=== PATIENT | male | born 1995 | race Caucasian/White ===

== ENCOUNTER 2024-01-24 19:44 | Emergency (ER) | payer BC, SELFPAY ==
[2024-01-24 19:45] VITALS: BP 170/91; PULSE 116; RESP 18; TEMP 36.6; O2SAT 99; BMI 23.0
--- NOTE | 2024-01-24 20:15 | RAD_ITS ---
STUDY: X-RAY - LEFT WRIST REASON FOR EXAM: Male, 28 years old. trauma TECHNIQUE: 3 view(s) of the wrist were obtained. COMPARISON: None. FINDINGS: Acute nondisplaced non a transverse fracture of the distal metaphysis of the radius with associated ulnar styloid fracture. Normal radiocarpal articulation. Normal distal radioulnar articulation. Normal carpal bones. Normal carpal articulations. Normal carpometacarpal articulation of the thumb. Normal second through fifth carpometacarpal articulations. Normal visualized metacarpal bones. The soft tissue structures are unremarkable. RAD/Wrist min 3 Views IMPRESSION: Acute nondisplaced nonangulated transverse fracture of the distal radius with ulnar styloid fracture. Electronically Signed: Andrés Romero MD at 21:03 EDT ,
--- NOTE | 2024-01-24 20:16 | EX.ED.UPPERE ---
HPI History of Present Illness Chief Complaint: Upper Extremity Injury Informant: patient Narrative Narrative: 28-year-old male states that he fell backwards try to catch himself causing injury to left wrist. He notes swelling and limited range of motion due to pain. He denies any other injuries. He is right-handed. [facility] Allergy/AdvReac Type Severity Reaction Status Date / Time No Known Allergies Allergy Verified 01/24/24 19:46 Social History Smoking Status: Never smoker alcohol intake: never ROS ROS ED Constitutional Constitutional ED: Denies chills or weight loss Eyes Eyes: Denies change in vision or diplopia ENT ENT ED: Denies ear pain, rhinorrhea or sore throat Cardiovascular Cardiovascular: Denies chest pain, orthopnea, palpitations or racing heartbeat Respiratory/Chest Respiratory/Chest: Denies cough, dyspnea or orthopnea Gastrointestinal Gastrointestinal: Denies abdominal pain, diarrhea, nausea or vomiting Genitourinary Genitourinary ED: Denies dysuria, hematuria or urinary frequency Musculoskeletal Musculoskeletal: Reports other Details: See history of present illness ; Denies arthralgias or myalgias Integumentary Denies abscess or rash Neurologic Neurologic: Denies headache(s) or weakness Psychiatric Psychiatric: Denies anxiety, depression, suicidal ideation or suicidal thoughts Endocrine Endocrinology: Denies polydipsia, polyphagia or polyuria Allergic/Immunologic Allergic/Immunologic ED: Denies mouth swelling, tongue swelling or urticaria EXAM Physical Exam Const Vital Signs: 01/24/24 19:45 Temperature 98 F Temperature Source Temporal Pulse Rate 116 H Respiratory Rate 18 Blood Pressure 170/91 H Blood Pressure Mean 117 Pulse Ox 99 Oxygen Delivery Method Room Air Positive well nourished and well developed General Appearance ED: well developed HEENT Reports normocephalic, head/scalp atraumatic and moist mucous membranes Eyes PERRL and EOMs intact bilaterally Neck no lymphadenopathy, supple and no JVD Resp normal respiratory effort and clear to auscultation bilaterally Cardio regular rate, regular rhythm and no murmurs GI normal to inspection, nondistended, normoactive bowel sounds and non-tender Palpation: soft Back/Spine no CVA tenderness and normal ROM Extremity Extremity Narrative: Patient has focal swelling and tenderness over the radial styloid on the left. No tenderness in the snuffbox. Neurovascular intact. Limited range of motion particularly supination secondary to pain. General Extremety ED: Negative for edema General Extremity: Negative for edema Neuro oriented x3 and CN's II-XII intact bilaterally Sensorium / Orientation: alert Motor Exam: strength 5/5 throughout Psych mental status grossly normal Mood & Affect: Negative for depressed or tearful Skin no rashes or lesions noted and no wounds MDM MDM MDM Narrative Medical decision making narrative: My independent interpretation of the plain films of the left wrist is a ulnar styloid fracture and nondisplaced fracture of the distal radius. Patient was placed in anterior posterior plaster splint well-padded made by this physician. Neurovascular intact pre and post application. Patient is declining pain medication both here in the department and at home. He will need to follow-up with orthopedics return if worsening or concerns History & Record Review Discussion w/independent historian: Patient Discharge Plan Triage Chief Complaint: Upper Extremity Injury ED Provider: Tai Davenport Dx/Rx/DC Orders Clinical Impression: Fall, Nondisplaced fracture of left ulna styloid process, initial encounter for closed fracture, Closed left radial fracture Instructions: ED Fracture, Wrist, General Primary Care Provider: NOT,DEFINED Referrals: Cristofer Green MD [Med Staff - Active Staff] - As soon as possible (for orthopedics) NOT,DEFINED [Primary Care Provider] - Print Language: British Disposition Disposition: Home, Self Care Discharge Date/Time: 01/24/24 21:42
[2024-01-24 21:39] VITALS: BP 130/87; PULSE 84; RESP 16; TEMP 36.6; O2SAT 96
== END 2024-01-24 21:42 | disposition home or self-care (01) ==
PROVIDERS: Emergency Provider Emergency Medicine; Visit Provider Emergency Medicine
DX: S52.615A Nondisplaced fracture of left ulna styloid process, initial encounter for closed fracture (principal); S52.502A Unspecified fracture of the lower end of left radius, initial encounter for closed fracture; W18.39XA Other fall on same level, initial encounter
CPT/HCPCS: 29125; 73110; 99282

== ENCOUNTER 2024-06-30 18:28 | Emergency (ER) | payer BC, SELFPAY ==
[2024-06-30 18:29] VITALS: BP 141/85; PULSE 108; RESP 18; TEMP 37; O2SAT 97; BMI 23.0
--- NOTE | 2024-06-30 18:49 | EDS_ITS ---
HPI History of Present Illness HPI Narrative: Patient presents with right foot and ankle pain that began after a fall this morning. Patient states he fell excellently 7 feet off of a trailer. Patient states he landed on his right heel. Patient states his pain is worse with any weightbearing. Patient describes the pain as stabbing. Patient denies any paresthesias or weakness. Patient states he landed on his heel on hard ground. Patient denies any other injuries. Chief Complaint: Lower Extremity Injury Informant: patient Occured/Mechanism Mechanism/Context: Yes fall Comment: Fell approximately 7 feet off of a trailer and landed on his right heel on hard ground Onset/Context/Timing Onset: Today Context: Sudden Onset Timing: Continuous Quality of Pain: Stabbing Location: Right foot and ankle Worsened by: Weightbearing Relieved by: Nothing Associated Symptoms Associated Symptoms: Negative for Parasthesia, Weakness or Loss of Funtion PFSH PFSH Medical History no medical history no medical history Home Medications ?Medication ?Instructions ?Recorded ?Last Taken ?Type NK 01/28/24 Unknown History Allergy/AdvReac Type Severity Reaction Status Date / Time No Known Allergies Allergy Verified 01/28/24 08:27 Surgical History no surgical history no surgical history Social History household members: significant other and family Smoking Status: Never smoker alcohol intake: current alcohol intake frequency: a few times a week ROS ROS ED Constitutional Constitutional ED: Denies chills or fever(s) Eyes Eyes: Denies blurry vision or change in vision ENT ENT ED: Denies rhinorrhea or sore throat Cardiovascular Cardiovascular: Denies chest pain or palpitations Respiratory/Chest Respiratory/Chest: Denies cough or dyspnea Gastrointestinal Gastrointestinal: Denies nausea or vomiting Genitourinary Genitourinary ED: Denies dysuria or hematuria Musculoskeletal Musculoskeletal: Denies back pain or neck pain Integumentary Denies abscess or rash Neurologic Neurologic: Denies headache(s) or weakness Allergic/Immunologic Allergic/Immunologic ED: Denies mouth swelling or urticaria EXAM Physical Exam Const Vital Signs: 06/30/24 18:29 Temperature 98.6 F Temperature Source Oral Pulse Rate 108 H Respiratory Rate 18 Blood Pressure 141/85 H Blood Pressure Mean 103 Pulse Ox 97 Oxygen Delivery Method Room Air Positive well nourished and well developed General Appearance ED: well developed and NAD HEENT Reports moist mucous membranes Neck full ROM and supple Extremity Extremity Narrative: There is mild tenderness over the right calcaneus. There is no edema or ecchymosis. There is no deformity noted. Range of motion was slightly limited in all motions of the right ankle secondary to pain. There is no tenderness over the knee or proximal lower leg. There is no tenderness over the fifth metatarsal. Sensation was intact to light touch in all digits. Capillary refills less than 2 seconds in all digits. There is strong pedal pulse noted. Neuro oriented x3, CN's II-XII intact bilaterally, moves all extremities and no sensory deficits noted Sensorium / Orientation: alert Motor Exam: strength 5/5 throughout Psych mental status grossly normal MDM MDM MDM Narrative Medical decision making narrative: Differential diagnosis includes calcaneus fracture, ankle fracture, sprain, and contusion. X-rays of the right ankle and calcaneus will be obtained to assess for fracture. Radiography Diagnostic Testing: Clinical Impression(s) from Imaging Studies Ankle X-Ray 06/30/24 19:00 IMPRESSION: Negative. Electronically Signed: Caio Amezquita DO at 20:04 EDT Reading Location ID and State: [facility] / [place] Tel [phone], Service support , X-rays of the right ankle were obtained. There are 3 views. On my independent interpretation, there is no acute fracture or dislocation noted. Radiologist also interpreted the x-rays and agrees. X-rays of the right calcaneus were obtained. There are 2 views. On my independent interpretation, there is no acute fracture or dislocation noted. Radiologist also interpreted the x-rays and agrees. Treatment and Re-Evaluation Narrative: Patient was advised of his findings. Patient was given a walking boot. Patient was instructed to ice and elevate the right ankle. Patient was instructed to follow-up with his primary care physician in 5 to 7 days. Patient understood and was agreeable with the plan. All questions were answered. Discharge Plan Triage Chief Complaint: Lower Extremity Injury ED Provider: Db Ford Dx/Rx/DC Orders Clinical Impression: Contusion of right heel, Fall Instructions: ED Foot Contusion Prescriptions: No Action NK Primary Care Provider: Care Physician,No Primary Referrals: NOT,DEFINED [Non-Staff] - 5-7 Days Print Language: Ethiopian Disposition Disposition: Home, Self Care
--- NOTE | 2024-06-30 19:00 | RAD_ITS ---
INDICATION: Injury/Pain EXAMINATION/TECHNIQUE: X-RAY - RIGHT XR Ankle Min 3 Views 3 VIEWS COMPARISON: FINDINGS: SOFT TISSUES: No soft tissue swelling or gas. No radiopaque foreign body. BONES/JOINTS: No acute fracture or subluxation.. Normal alignment. Preservation of the joint space.. No sclerotic or destructive changes observed. RAD/Ankle min 3 Views IMPRESSION: Negative. Electronically Signed: Caio Amezquita DO at 20:04 EDT ,
--- NOTE | 2024-06-30 19:00 | RAD_ITS ---
INDICATION: Pain EXAMINATION/TECHNIQUE: X-RAY - RIGHT XR Calcaneus Min 2 Views 2 VIEWS COMPARISON: FINDINGS: SOFT TISSUES: No soft tissue swelling or gas. No radiopaque foreign body. BONES/JOINTS: No acute fracture or subluxation.. Normal alignment. Preservation of the joint space.. No sclerotic or destructive changes observed. RAD/Calcaneus min 2 Views IMPRESSION: Negative. Electronically Signed: Caio Amezquita DO at 20:31 EDT ,
== END 2024-06-30 20:55 | disposition home or self-care (01) ==
PROVIDERS: Emergency Provider Emergency Medicine; Visit Provider Emergency Medicine
DX: S90.31XA Contusion of right foot, initial encounter (principal); W17.89XA Other fall from one level to another, initial encounter
CPT/HCPCS: 73610; 73650; 99283

== ENCOUNTER → 2024-12-14 | Outpatient (CLI) | payer BC, SELFPAY ==
[2024-12-14 13:14] LABS: Hemoglobin A1c 5.4 % (<=5.6)
[2024-12-14 13:21] LABS: ALB/GLOB Ratio 1.6 RATIO (0.9-2.4); AST(SGOT) 20 U/L (<=37); Alanine Aminotransfer ALT/SGPT 34 U/L (<=46); Alkaline Phosphatase 65 U/L (40-129); Anion Gap 15 (5-15); BUN 14 mg/dL (4-19); Calcium,Total 10.4 mg/dL (7.6-11.0); Carbon Dioxide 24.5 mmol/L (21.0-32.0); Chloride 100 mmol/L (98-108); Cholesterol 186 mg/dL (<=200); Creatinine, Serum 0.95 mg/dL (0.70-1.20); EST Glomerular Filtration Rate 113 (>60); Globulin 3.1 g/dL (2.2-4.2); Glucose 91 mg/dL (70-99); High Density Lipoprotein 42 mg/dL; Low Density Lipoprotein Calc. 117 mg/dL; Potassium 4.5 mmol/L (3.3-5.1); Protein, Total 8.1 g/dL (5.9-8.4); Sodium Level 139 mmol/L (133-145); Total Bilirubin 0.79 mg/dL (0.00-1.30); Triglycerides 135 mg/dL; Very Low Density Lipoprotein 27 mg/dL (5-40); cholesterol:hdl ratio screen 4.45
== END | disposition home or self-care (01) ==
LOC: VSLAB 08:49
PROVIDERS: PCP Nurse Practitioner Family; Visit Provider Nurse Practitioner Family
DX: Z13.220 Encounter for screening for lipoid disorders (principal); Z13.1 Encounter for screening for diabetes mellitus; F41.8 Other specified anxiety disorders
CPT/HCPCS: 36415; 80053; 80061; 83036